=== PATIENT | male | born 1980 | race Caucasian/White ===

== ENCOUNTER 2020-04-08 17:53 | Emergency (ER) | payer OTHER ==
[~2020-04-08] VITALS: Ht 185.4 cm; Wt 108.9 kg
[~2020-04-08 17:53] MED LIST: NOHOMEMEDICATIONS; NORCO 5-325 TA1 EACH PO
[2020-04-08 18:32] LABS: HEMATOCRIT 36.9 % (42.0-52.0); HEMOGLOBIN 12.8 gm/dL (14.0-18.0); MCH 30.5 pg (26.0-34.0); MCHC 34.8 g/dL (28.0-37.0); MCV 87.7 fL (80.0-100.0); PLATELET COUNT 289 thou/uL (150-400); RBC 4.21 mil/uL (4.50-6.00); RDW 13.1 % (10.5-14.5); WBC 5.2 thou/uL (4.0-11.0)
[2020-04-08 18:40] LABS: CALCIUM 8.7 mg/dL (8.5-10.1); POTASSIUM 3.4 mmol/L (3.5-5.1)
[2020-04-08 18:46] LABS: ALBUMIN 3.8 g/dL (3.4-5.0); TOTAL BILIRUBIN 0.4 mg/dL (0.2-1.0); TOTAL PROTEIN 7.4 g/dL (6.4-8.2)
[2020-04-08 19:02] LABS: ANISOCYTOSIS 1+
[2020-04-08 19:28] LABS: URINE BILIRUBIN NEGATIVE (Negative); URINE BLOOD TRACE (Negative); URINE CLARITY CLEAR; URINE COLOR YELLOW; URINE GLUCOSE-RANDOM* NEGATIVE (Negative); URINE KETONES NEGATIVE (Negative); URINE LEUKOCYTES-REFLEX NEGATIVE (Negative); URINE NITRITE-REFLEX NEGATIVE (Negative); URINE PROTEIN (DIPSTICK) NEGATIVE (Negative)
[2020-04-08 19:35] LABS: AMP/METHAMP POSITIVE (Negative); BARBITURATES Negative (Negative); BENZODIAZEPINES Negative (Negative); COCAINE Negative (Negative); METHADONE Negative (Negative); OPIATES Negative (Negative); PCP Negative (Negative)
[2020-04-08 19:57] VITALS: BP 132/79
--- NOTE | 2020-04-09 08:01 | EKG ---
[facility] [place] [address] ELECTROCARDIOGRAM REPORT Name: DOROTHY MOISE Room #: DEP [facility]#: [id number] Admission: 04/08/20 Attend Phys: Discharge: 04/08/20 Date of : 82 Report #: [id number] THIS REPORT FOR: cc: FAM - No family physician/PCP FAM - No family physician/PCP Be Winter MD [facility] THIS REPORT FOR: //name// [facility] ED Test Date: 2020-04-08 Test Time: 18:04:52 Pat Name: DOROTHY MOISE Department: Room: Gender: [employer]ger: [facility] : 1980 Requested By: Cortes Hu Order Number: [id number] MD: Be Winter Measurements Intervals [place] Rate: 91 P: 80 NM: 147 QRS: 62 QRSD: 80 T: 70 QT: 365 QTc: 450 Interpretive Statements Sinus rhythm No significant abnormality No previous ECG available for comparison Electronically Signed On 04-09-2020 8:00:58 CDT by Be Winter [email or web address] <ELECTRONICALLY SIGNED> By: Be Winter MD, FAC 04/09/20 0800 1804 03 Be Winter MD, FACC /EPI
== END 2020-04-08 19:58 ==
LOC: ER 17:53
PROVIDERS: Emergency Medicine
DX: R45.851 Suicidal ideations (principal); Z04.3 Encounter for examination and observation following other accident; F17.210 Nicotine dependence, cigarettes, uncomplicated; Z79.899 Other long term (current) drug therapy; V89.2XXA Person injured in unspecified motor-vehicle accident, traffic, initial encounter; Y93.I9 Activity, other involving external motion; Y92.488 Other paved roadways as the place of occurrence of the external cause; Y99.8 Other external cause status